=== PATIENT | female | born 1950 | race Caucasian/White ===

== ENCOUNTER → 2017-07-15 | Outpatient (CLI) | payer MEDICARE, BC ==
[~2017-07-15] MED LIST: AUGMENTIN 250250 MG PO; CALCIUM600 MG PO; COLACE-DPS100 MG PO; DAILY MULTIVIT1 EAC2 PO; DEXAMETHASONE4 MG PO; FISH OIL 1,2001 EACH PO; KLOR-CON M2020 ME1 PO; LOVENOX DP60 MG/0.6 SQ; MAALOX DPS30 ML PO; MAGNESIUM250 M1 PO; PEPCID DPS20 MG PO; PROCHLORPERAZIN10 MG PO; TOPROL XL25 MG PO; TYLENOL325 MG PO; ULTRAM DPS50 MG PO; VITAMIN B-12500 MCG PO; VITAMIN D31000 UNIT PO
== END | disposition home or self-care (01) ==
LOC: RAD.S 08:14
PROC: 3E0M3KZ Introduction of Other Diagnostic Substance into Peritoneal Cavity, Percutaneous Approach (ICD-10-PCS; principal; 2017-07-15)
DX: K65.1 Peritoneal abscess (principal)